=== PATIENT | male | born 1990 | race Caucasian/White ===

== ENCOUNTER 2018-09-07 22:54 | Emergency (ER) | payer MEDICARE ==
[~2018-09-07] VITALS: Ht 172.7 cm; Wt 90.7 kg
--- NOTE | 2018-09-08 00:35 | NUR ---
BIB SELF. AAOX4. NAD, BREATHING EVEN AND UNLABORED. AMBULATORY/ C/O EPIGASTRIC PAIN APPROW 2 DAYS PER PT. REPORT NAUSEA, VOMITING AND DIARRHEA. ALSO HE HAS A WOUND ON L ELBOW WITH NOTED WHITE DRAINAGE, HX OF ELBOW SX BACK 2014. TO ER BED 9. MD AT BEDSIDE FOR EVAL. AWAITING ORDERS
--- NOTE | 2018-09-08 00:43 | NUR ---
IV LINE OBTAINED ON R AC 20G. BLOOD DRAWN AND GIVEN TO LAB CALE AT BEDSIDE
--- NOTE | 2018-09-08 00:46 | NUR ---
XRAY AT BEDSIDE
[2018-09-08 00:47] LABS: BASOPHILS # (AUTO) 0.1 /CMM (0.0-0.2); BASOPHILS % (AUTO) 1.2 % (0.0-2.0); EOSINOPHILS % (AUTO) 2.2 % (0.0-6.0); HEMATOCRIT 48 % (39-51); HEMOGLOBIN 16.2 g/dL (13.5-17.5); LYMPHOCYTES # (AUTO) 1.7 /CMM (0.8-4.8); LYMPHOCYTES % (AUTO) 26.7 % (20.0-44.0); MEAN CORPUSCULAR HGB CONC 34 g/dl (31.0-36.0); MEAN CORPUSCULAR VOLUME 95 fL (80-96); MONOCYTES # (AUTO) 0.6 /CMM (0.1-1.30); MONOCYTES % (AUTO) 9.4 % (2.0-12.0); NEUTROPHILS # (AUTO) 3.9 /CMM (1.8-8.9); NEUTROPHILS % (AUTO) 60.5 % (43.0-81.0); PLATELET COUNT (AUTO) 232 /CMM (150-450); RED BLOOD CELL COUNT(AUTO) 5.03 MIL/uL (4.5-6.0); WHITE BLOOD COUNT (AUTO) 6.5 K/uL (4.3-11.0)
[2018-09-08] MEDS ORDERED: ONDANSETRON HCL/PF 4 MG/2 ML VIAL ONE (00:53)
[2018-09-08 00:57] LABS: CALCIUM, SERUM 8.9 mg/dL (8.5-10.1); CREATININE 0.7 mg/dL (0.6-1.3); POTASSIUM 3.2 mmol/L (3.5-5.1)
[2018-09-08] MEDS ORDERED: ONDANSETRON HCL/PF 4 MG/2 ML VIAL IVP ONE (01:00)
[2018-09-08] MEDS ORDERED: IV NS 0.9% 1,000 ML BAG IV ONE (01:00)
[2018-09-08 01:12] LABS: ALBUMIN 4.6 g/dL (3.4-5.0); BILIRUBIN,DIRECT 0.1 mg/dL (0.0-0.2); BILIRUBIN,TOTAL 0.5 mg/dL (0.2-1.0); TOTAL PROTEIN, SERUM 7.9 g/dL (6.4-8.2)
--- NOTE | 2018-09-08 01:50 | NUR ---
Patient discharged to home in stable condition. Written and verbal after care instructions given. Patient verbalizes understanding of instruction.IV removed. Catheter intact and site benign. Pressure and 4x4 applied to site. No bleeding noted. Pt ambulatory with a steady gait
--- NOTE | 2018-09-08 01:51 | NUR ---
PT JUST URINATED AND GAVE SPECIMEN. MADE AWARE AND ORDER CANCEL FOR UA
[2018-09-08 02:06] VITALS: BP 120/77
== END 2018-09-08 02:07 | disposition home or self-care (01) ==
LOC: ER 23:00
DX: A08.4 Viral intestinal infection, unspecified (principal); T81.49XA Infection following a procedure, other surgical site, initial encounter; G89.29 Other chronic pain; F20.9 Schizophrenia, unspecified; F41.9 Anxiety disorder, unspecified; Z98.890 Other specified postprocedural states
CPT/HCPCS: 36415; 73070; 80048; 80076; 83690; 85025; 96361; 96374; 99284; J2405; J7030

== ENCOUNTER 2019-06-18 13:02 | Emergency (ER) | payer SELFPAY ==
[~2019-06-18] VITALS: Ht 172.7 cm; Wt 77.6 kg
[2019-06-18 13:05] VITALS: BP 133/86
== END 2019-06-18 14:00 | disposition home or self-care (01) ==
LOC: ER 13:02
DX: S13.4XXA Sprain of ligaments of cervical spine, initial encounter (principal); F20.9 Schizophrenia, unspecified; G89.29 Other chronic pain; Z98.890 Other specified postprocedural states; W06.XXXA Fall from bed, initial encounter; Y93.89 Activity, other specified; Y92.89 Other specified places as the place of occurrence of the external cause; Y99.8 Other external cause status

== ENCOUNTER 2019-12-22 12:26 | Emergency (ER) | payer MEDICARE, OTHER ==
[~2019-12-22] VITALS: Ht 170.2 cm; Wt 83.0 kg
--- NOTE | 2019-12-22 12:26 | NUR ---
PT BIBRA C/O ELBOW PAIN AND BIZARRE BEHAVIOR. PT IS AAOX2, NOT IN RESPIRATORY DISTRESS, V/S STABLE, KEPT RESTED AND COMFORTABLE. WILL CONTINUE TO MONITOR.
--- NOTE | 2019-12-22 12:50 | NUR ---
SEEN AND EXAMINED BY .
[2019-12-22] MEDS ORDERED: diphenhydrAMINE HCL 50 MG/ML VIAL ONE (13:30)
[2019-12-22] MEDS ORDERED: HALOPERIDOL LACTATE INJ 5 MG/ML VIAL ONE (13:31)
[2019-12-22] MEDS ORDERED: LORAZEPAM INJ 2 MG/ML VIAL ONE (13:31)
--- NOTE | 2019-12-22 13:32 | NUR ---
agitated, acting psychotic and combative to staff. myke woodson aware. verbal order for haldol 5mg im, ativan 2mg im and benadryl 50mg im given as ordered.
--- NOTE | 2019-12-22 13:38 | NUR ---
URINE SPECIMEN COLLECTED AND SENT TO LAB.
--- NOTE | 2019-12-22 13:45 | NUR ---
GAMING DEALER AT BEDSIDE FOR XRAY.
[2019-12-22 13:54] LABS: APPEARANCE,URINE Clear (CLEAR); BILIRUBIN,URINE MODERATE (NEGATIVE); BLOOD, URINE Negative Ery/uL (NEGATIVE); KETONES,URINE >=160 (NEGATIVE); LEUKOCYTE ESTERASE ,URINE Negative (NEGATIVE); NITRITE, URINE Negative (NEGATIVE); PROTEIN,URINE 100 mg/dl (NEGATIVE); UGLUCOSE Negative (NEGATIVE); UROBILINOGEN,URINE 0.2 EU/dL (0.2)
[2019-12-22 13:56] LABS: COLOR,URINE DARK YELLOW (YELLOW)
[2019-12-22] MEDS ORDERED: LORAZEPAM INJ 2 MG/ML VIAL IV ONE (14:00)
[2019-12-22] MEDS ORDERED: diphenhydrAMINE HCL 50 MG/ML VIAL IM ONE (14:00)
[2019-12-22] MEDS ORDERED: HALOPERIDOL LACTATE INJ 5 MG/ML VIAL IM ONE (14:00)
[2019-12-22 14:03] LABS: BASOPHILS # (AUTO) 0.1 /CMM (0.0-0.2); BASOPHILS % (AUTO) 1.2 % (0.0-2.0); EOSINOPHILS % (AUTO) 1.2 % (0.0-6.0); HEMATOCRIT 48 % (39-51); HEMOGLOBIN 15.9 g/dL (13.5-17.5); LYMPHOCYTES # (AUTO) 1.6 /CMM (0.8-4.8); LYMPHOCYTES % (AUTO) 22.4 % (20.0-44.0); MEAN CORPUSCULAR HGB CONC 33 g/dl (31.0-36.0); MEAN CORPUSCULAR VOLUME 98 fL (80-96); MONOCYTES # (AUTO) 0.6 /CMM (0.1-1.30); MONOCYTES % (AUTO) 8.9 % (2.0-12.0); NEUTROPHILS # (AUTO) 4.7 /CMM (1.8-8.9); NEUTROPHILS % (AUTO) 66.3 % (43.0-81.0); PLATELET COUNT (AUTO) 275 /CMM (150-450); WHITE BLOOD COUNT (AUTO) 7.1 K/uL (4.3-11.0)
[2019-12-22 14:10] LABS: CALCIUM, SERUM 8.7 mg/dL (8.5-10.1); CARBON DIOXIDE 11 mmol/L (21-32); CHLORIDE 101 mmol/L (98-107); CREATININE 1.4 mg/dL (0.6-1.3); GLUCOSE 153 mg/dL (74-106); POTASSIUM 2.9 mmol/L (3.5-5.1); SODIUM SERUM 142 mmol/L (136-145); UREA NITROGEN, BLOOD 9 mg/dL (7-18)
[2019-12-22 14:14] LABS: BACTERIA,URINE Few /HPF (None Seen); MUCUS,URINE Many /LPF (None Seen); RBC,URINE 0-2 /HPF (0-2); SQUAMOUS EPITHELIAL CELL,UR Moderate /HPF (None Seen)
[2019-12-22 14:15] LABS: ALANINE AMINOTRANSFERASE 21 U/L (12-78); ALBUMIN 4.7 g/dL (3.4-5.0); ALCOHOL, BLOOD < 3 mg/dL (0-0); ALKALINE PHOSPHATASE 89 U/L (46-116); ASPARTATE AMINOTRANSFERASE 21 U/L (15-37); BILIRUBIN,DIRECT 0.2 mg/dL (0.0-0.2); BILIRUBIN,TOTAL 1.1 mg/dL (0.2-1.0); TOTAL PROTEIN, SERUM 8.2 g/dL (6.4-8.2)
[2019-12-22 14:17] LABS: SALICYLATE < 2.8 mg/dL (2.8-20.0)
[2019-12-22 14:18] LABS: ACETAMINOPHEN < 2 ug/ml (10-30)
--- NOTE | 2019-12-22 14:34 | NUR ---
PT BROTHER NOREEN [phone] PT [facility] [place] [phone]
--- NOTE | 2019-12-22 15:05 | NUR ---
ASSESSED PT ON BED ASLEEP EASILY AROUSABLE. NOT IN RESPIRATORY DISTRESS, V/S STABLE, KEPT RESTED AND COMFORTABLE. WILL CONTINUE TO MONITOR.
--- NOTE | 2019-12-22 18:42 | NUR ---
ASSESSED PT ON BED ASLEEP EASILY AROUSABLE, NOT IN RESPIRATORY DISTRESS, V/S STABLE, KEPT RESTED AND COMFORTABLE. WILL CONTINUE TO MONITOR.
--- NOTE | 2019-12-22 19:24 | NUR ---
SPOKE TO FAMILY, WILL BE ABLE TO TRAVELING PHLEBOTOMIST PT IN THE NEXT 20 MINS.
--- NOTE | 2019-12-22 19:53 | NUR ---
Patient discharged to home in stable condition. Written and verbal after care instructions given. Patient verbalizes understanding of instruction. PT ambulated with steady gait. vss.
--- NOTE | 2019-12-22 19:53 | NUR ---
FAMILY AT BEDSIDE PICKING UP PT.
[2019-12-22 19:54] VITALS: BP 127/68
== END 2019-12-22 19:55 | disposition home or self-care (01) ==
LOC: ER 12:32
DX: F29 Unspecified psychosis not due to a substance or known physiological condition (principal); F10.99 Alcohol use, unspecified with unspecified alcohol-induced disorder; M25.522 Pain in left elbow; F20.9 Schizophrenia, unspecified; G89.29 Other chronic pain; M54.5 Low back pain; F41.9 Anxiety disorder, unspecified; R45.1 Restlessness and agitation; Z98.890 Other specified postprocedural states
CPT/HCPCS: 36415; 73080; 80048; 80076; 80305; 80307; 80329; 81001; 85025; 96372 ×2; 99285; G0480; J1200; J1630; J2060; 81000-TC

== ENCOUNTER 2023-05-04 13:57 | Emergency (ER) | payer OTHER ==
[~2023-05-04] VITALS: Ht 175.3 cm; Wt 86.2 kg
[2023-05-04] MEDS ORDERED: ACETAMINOPHEN ES 500 MG TABLET ONE (14:23)
[2023-05-04] MEDS: ACETAMINOPHEN ES 500 MG TABLET PO ONE (14:24)
[2023-05-04] MEDS: IV NS 0.9% 1,000 ML BAG IV ONE (14:24)
[2023-05-04] MEDS ORDERED: IV NS 0.9% 250 ML IV ONE (14:39)
[2023-05-04] MEDS ORDERED: IOHEXOL-300 100 ML VIAL IV ONE (14:39)
[2023-05-04 15:10] LABS: BASOPHILS # (AUTO) 0.1 K/uL (0.0-0.2); BASOPHILS % (AUTO) 0.6 % (0.0-2.0); EOSINOPHILS # (AUTO) 0.2 K/uL (0.0-0.7); EOSINOPHILS % (AUTO) 1.4 % (0.0-6.0); HEMATOCRIT 46 % (39-51); HEMOGLOBIN 15.5 g/dL (13.5-17.5); LYMPHOCYTES # (AUTO) 1.4 K/uL (0.8-4.8); LYMPHOCYTES % (AUTO) 11.5 % (20.0-44.0); MEAN CORPUSCULAR HEMOGLOBIN 32 PG (26.0-33.0); MEAN CORPUSCULAR HGB CONC 34 g/dl (31.0-36.0); MEAN CORPUSCULAR VOLUME 94 fL (80-96); MONOCYTES # (AUTO) 0.6 K/uL (0.1-1.30); MONOCYTES % (AUTO) 5.4 % (2.0-12.0); NEUTROPHILS # (AUTO) 9.6 K/uL (1.8-8.9); NEUTROPHILS % (AUTO) 81.1 % (43.0-81.0); PLATELET COUNT (AUTO) 260 K/uL (150-450); RED BLOOD CELL COUNT(AUTO) 4.84 MIL/uL (4.5-6.0); RED CELL DISTRIBUTION WIDTH 13.8 % (11.5-15.0); WHITE BLOOD COUNT (AUTO) 11.9 K/uL (4.3-11.0)
[2023-05-04 15:23] LABS: INR 0.99 (0.91-1.10); PARTIAL THROMBOPLASTIN TIME 27.8 SEC (24.3-34.3); PROTHROMBIN TIME 10.5 SECS (9.2-11.1)
[2023-05-04 15:26] LABS: CREATININE 0.8 mg/dL (0.6-1.3); POTASSIUM 3.9 mmol/L (3.5-5.1)
[2023-05-04 15:31] LABS: ALBUMIN 4.4 g/dL (3.4-5.0); BILIRUBIN,DIRECT 0.1 mg/dL (0.0-0.2); BILIRUBIN,TOTAL 0.6 mg/dL (0.2-1.0); TOTAL PROTEIN, SERUM 7.6 g/dL (6.4-8.2)
[2023-05-04] MEDS ORDERED: AMOX-430 PO (16:13)
[2023-05-04] MEDS ORDERED: OXYM15MI4 NS (16:13)
[2023-05-04] MEDS ORDERED: oxyCODONE/APAP (5/325 MG) 1 UDTAB TABLET ONE (16:31)
[2023-05-04] MEDS ORDERED: AMOX/CLAVULANATE 875 MG TABLET ONE (16:31)
[2023-05-04] MEDS: AMOX/CLAVULANATE 875 MG TABLET PO ONE (16:39)
[2023-05-04] MEDS: oxyCODONE/APAP (5/325 MG) 1 UDTAB TABLET PO ONE (16:39)
[2023-05-04 17:33] VITALS: BP 115/74; TEMP 97.5; O2SAT 100
== END 2023-05-04 17:35 | disposition home or self-care (01) ==
LOC: ER 13:57
DX: S02.2XXA Fracture of nasal bones, initial encounter for closed fracture (principal); G89.29 Other chronic pain; F20.9 Schizophrenia, unspecified; F41.9 Anxiety disorder, unspecified; Y04.2XXA Assault by strike against or bumped into by another person, initial encounter; Y93.89 Activity, other specified; Y92.89 Other specified places as the place of occurrence of the external cause; Y99.8 Other external cause status
CPT/HCPCS: 99285; 72125; 96360; 71045; 70450; 70487; 85025; 80048; 80076; 36415; 85730; 86850; J7030; J7050; A6403; Q9967